=== PATIENT | male | born 1995 | race Two or more races ===

== ENCOUNTER 2018-08-21 16:25 | Emergency (ER) | payer SELFPAY ==
[~2018-08-21] VITALS: Ht 182.9 cm; Wt 77.1 kg
[2018-08-21] MEDS ORDERED: traMADol HCL 50 MG TAB PO ONE (18:00)
[2018-08-21 18:20] VITALS: BP 110/70
== END 2018-08-21 18:39 | disposition home or self-care (01) ==
LOC: ER 16:43
DX: S43.401A Unspecified sprain of right shoulder joint, initial encounter (principal); F17.210 Nicotine dependence, cigarettes, uncomplicated; F12.10 Cannabis abuse, uncomplicated; V00.311A Fall from snowboard, initial encounter; Y93.23 Activity, snow (alpine) (downhill) skiing, snowboarding, sledding, tobogganing and snow tubing; Y99.8 Other external cause status; Y92.89 Other specified places as the place of occurrence of the external cause
CPT/HCPCS: 29105; 73030